=== PATIENT | female | born 1955 | race Caucasian/White ===

== ENCOUNTER 2017-03-11 08:09 | Emergency (ER) | payer OTHER ==
[~2017-03-11] VITALS: Ht 167.6 cm; Wt 82.8 kg
[2017-03-11] MEDS ORDERED: LORazepam 1MG TABLET ONE (08:38)
[2017-03-11] MEDS ORDERED: ASPIRIN 81 MG TABLET CHEW ONE (08:38)
[2017-03-11] MEDS ORDERED: LISINOPRIL 20 MG TABLET ONE (08:38)
[2017-03-11] MEDS ORDERED: LORazepam 1MG TABLET PO ONE (09:00)
[2017-03-11] MEDS ORDERED: ASPIRIN 81 MG TABLET CHEW PO ONE (09:00)
[2017-03-11] MEDS ORDERED: LISINOPRIL 10 MG TABLET PO ONE (09:00)
[2017-03-11 09:03] LABS: BLOOD UREA NITROGEN 13 mg/dL (7-18)
[2017-03-11 09:06] LABS: IS PT STATUS REG ER OR PRE ER? YES
[2017-03-11 09:34] VITALS: BP 156/97
== END 2017-03-11 10:06 | disposition home or self-care (01) ==
LOC: ED 08:36
DX: I10 Essential (primary) hypertension (principal); Z79.82 Long term (current) use of aspirin
CPT/HCPCS: 36415; 71010; 80048; 82040; 83880; 84484; 85025; 93005; 99285